=== PATIENT | male | born 1945 | race Caucasian/White ===

== ENCOUNTER 2017-01-16 19:10 | Emergency (ER) | payer OTHER ==
--- NOTE | 2017-01-16 19:13 | PDOC ---
History of Present Illness - General History Source: Patient Exam Limitations: No Limitations - History of Present Illness Initial Comments: 01/16/17 20:18 71 year old male, with significant past medical history of COPD, HTN, GERD, and diverticulitis who presents to the emergency room complaining of an intermittent streak of white light that appeared in his left eye 2 hours ago while watching TV. He notes that when this sensation began he simultaneously felt lightheaded. He denies blurry and double vision. Denies eye discharge, itchiness, and tearing. He denies recent change in vision and notes that he has been wearing glasses for many years. Denies headache. Denies recent head trauma and injury. Denies chest pain, SOB, cough. Denies fever, chills, nausea, vomiting. PAST MEDICAL HISTORY: COPD, HTN, GERD, diverticulitis PAST SURGICAL HISTORY: appendectomy, cholecystectomy FAMILY HISTORY: no pertinent history SOCIAL HISTORY: Pt lives with family. MEDICATIONS: reviewed ALLERGIES: Penicillin Review of systems General: No fevers or chills, no weakness, no weight loss HEENT: +streak of white light in the left visual field. No sore throat, No ear pain CardioVascular: No chest pain or shortness of breath Respiratory:No cough, or wheezing. Gastrointestinal: no nausea, vomiting, diarrhea or constipation, No rectal bleeding Genitourinary: No dysuria, hematuria, or frequency Musculoskeletal: No joint or muscle pain or swelling Neurologic: No headache, vertigo, dizziness or loss of consciousness Psychiatric: nor depression Skin: No rashes or easy bruising Endocrine: no increased thirst or abnormal weight change Allergic: no skin or latex allergy All other systems reviewed and normal Physical Exam GENERAL: The patient is awake, alert, and fully oriented, in no acute distress. HEAD: Normal with no signs of trauma. EYES: Pupils equal, round and reactive to light, extraocular movements intact, sclera anicteric, conjunctiva clear. FUNDUSCOPIC EXAM: Disc margins sharp. Funduscopic exam otherwise normal LEFT VISUAL ACUITY: 20/20 RIGHT VISUAL ACUITY: 20/25 EXTREMITIES: Normal range of motion, no edema. NEUROLOGICAL: Normal speech, normal gait. PSYCH: Normal mood, normal affect. SKIN: Warm, Dry, normal turgor, no rashes or lesions noted. <Teetee Seay - Last Filed: 01/16/17 20:22> - General History Source: Patient Exam Limitations: No Limitations - History of Present Illness Initial Comments: 01/16/17 20:20 This is a 71-year-old male who comes in complaining of intermittent flashers in his left eye patient denies any visual changes. Patient has a history of hypertension but denies any history of diabetes. Patient is otherwise healthy. Patient's visual acuity here in the emergency room was normal. Patient's eye exam including funduscopic exam was normal. Patient discharged home was told to call his behavioral health associate in the morning and follow-up for a full retinal exam funduscopic exam is <Katherine Shannon I - Last Filed: 01/16/17 20:28> - General Chief Complaint: Eye Problem Stated Complaint: LEFT EYE SEEING A STREAK OF WHITE LIGHT Time Seen by Provider: 01/16/17 19:12 Past History <Teetee Seay - Last Filed: 01/16/17 20:22> - Past Medical History Anemia: No Asthma: No Cancer: No Cardiac Disorders: No CVA: No COPD: Yes CHF: No Dementia: No Diabetes: No GI Disorders: Yes (GERD COLONIC POLYPS HIATAL HERNIA) Disorders: Yes (KIDNEY STONES) HTN: Yes Hypercholesterolemia: No Liver Disease: No Seizures: No Thyroid Disease: No - Surgical History Abdominal Surgery: Yes Appendectomy: Yes Cardiac Surgery: No Cholecystectomy: Yes Lung Surgery: No Neurologic Surgery: No Orthopedic Surgery: No - Immunization History Immunization Up to Date: No - Suicide/Smoking/Psychosocial Hx Smoking History: Current every day smoker Have you smoked in the past 12 months: Yes Number of Cigarettes Smoked Daily: 1 Cigars Per Day: 1 'Breaking Loose' booklet given: 04/14/14 Hx Alcohol Use: Yes (occasional) Drug/Substance Use Hx: No Substance Use Type: Alcohol Hx Substance Use Treatment: No <Katherine Shannon I - Last Filed: 01/16/17 20:28> - Past Medical History Allergies/Adverse Reactions: Allergies Allergy/AdvReac Type Severity Reaction Status Date / Time Penicillins Allergy Itching Verified 01/16/17 19:11 Home Medications: Ambulatory Orders Hydrochlorothiazide [Hctz -] 12.5 mg PO HS 08/10/14 Ramipril 10 mg PO HS 08/10/14 Ranitidine [Zantac -] 150 mg PO DAILY 01/16/17 *Physical Exam - Vital Signs Last Vital Signs Temp Pulse Resp BP Pulse Ox 97.6 F 76 18 159/94 97 01/16/17 19:10 01/16/17 19:10 01/16/17 19:10 01/16/17 19:10 01/16/17 19:10 <Teetee Seay - Last Filed: 01/16/17 20:22> *DC/Admit/Observation/Transfer <Teetee Seay - Last Filed: 01/16/17 20:22> - Discharge Dispostion Admit: No <Katherine Shannon I - Last Filed: 01/16/17 20:28> Diagnosis at time of Disposition: Vitreous floaters of left eye - Discharge Dispostion Disposition: HOME Condition at time of disposition: Stable - Patient Instructions Additional Instructions: Call your eye doctor in the morning and get an appointment for a retinal exam. Return to the emergency department immediately with ANY new, persistent or worsening symptoms. Continue any medications as previously prescribed by your physician. You should follow up with your primary doctor as soon as possible regarding today's emergency department visit. . Please make sure your doctor reviews the results of your emergency evaluation. Thank you for coming to the Emergency Department today for your care. It was a pleasure to see you today. Please note that your evaluation is INCOMPLETE until you follow-up with your doctor.
[2017-01-16 19:21] VITALS: BP 159/94; PULSE 76; TEMP 97.6; BMI 35.4
== END 2017-01-16 20:31 | disposition home or self-care (01) ==
LOC: FER 19:10
DX: H43.392 Other vitreous opacities, left eye (principal); I10 Essential (primary) hypertension; K21.9 Gastro-esophageal reflux disease without esophagitis; J44.9 Chronic obstructive pulmonary disease, unspecified
CPT/HCPCS: 99282-25

== ENCOUNTER 2017-09-12 21:48 | Emergency (ER) | payer OTHER ==
[2017-09-12 22:06] VITALS: BP 150/80; PULSE 71; TEMP 98; BMI 35.4
--- NOTE | 2017-09-12 23:23 | PDOC ---
History of Present Illness - General Chief Complaint: Pain, Acute Stated Complaint: ABDOMINAL PAIN History Source: Patient - History of Present Illness Travel History: No Initial Comments: 09/13/17 06:49 abd pain x months, worsening upper abd radiating to lower abd no nausea occsaional diarrhea nl BM this am Timing/Duration: reports: getting worse Quality: reports: moderate Abdominal Pain Onset Location: reports: epigastric Pain Radiation: reports: RLQ, LLQ Activities at Onset: reports: none Treatment Prior to Arrive: improves with: antacids Aggravating Factors: improves with: None Alleviating Factors: improves with: None Past History - Past Medical History Allergies/Adverse Reactions: Allergies Allergy/AdvReac Type Severity Reaction Status Date / Time Penicillins Allergy Itching Verified 01/16/17 19:11 Home Medications: Ambulatory Orders Hydrochlorothiazide [Hctz -] 12.5 mg PO HS 08/10/14 Ramipril 10 mg PO HS 08/10/14 Albuterol Sulfate [Proair Hfa] 8.5 gm IH DAILY 09/12/17 Dicyclomine HCl 10 mg PO PRN PRN 09/12/17 Pantoprazole Sodium 40 mg PO DAILY 09/12/17 Ciprofloxacin [Cipro (Restricted To Id)] 500 mg PO DAILY #14 tablet 09/13/17 metroNIDAZOLE [Flagyl -] 500 mg PO TID #21 tablet 09/13/17 Anemia: No Asthma: No Cancer: No Cardiac Disorders: No CVA: No COPD: Yes CHF: No Dementia: No Diabetes: No GI Disorders: Yes (GERD COLONIC POLYPS HIATAL HERNIA) Disorders: Yes (KIDNEY STONES) HTN: Yes Hypercholesterolemia: No Liver Disease: No Seizures: No Thyroid Disease: No - Surgical History Abdominal Surgery: Yes Appendectomy: Yes Cardiac Surgery: No Cholecystectomy: Yes Lung Surgery: No Neurologic Surgery: No Orthopedic Surgery: No - Immunization History Immunization Up to Date: No - Suicide/Smoking/Psychosocial Hx Smoking History: Former smoker Have you smoked in the past 12 months: Yes Number of Cigarettes Smoked Daily: 1 Cigars Per Day: 1 Information on smoking cessation initiated: No 'Breaking Loose' booklet given: 04/14/14 Hx Alcohol Use: Yes (occasional) Drug/Substance Use Hx: No Substance Use Type: Alcohol Hx Substance Use Treatment: No Abd/GI Specific PMHX - Complaint Specific PMHX GERD: Yes Review of Systems - Review of Systems All Other Systems: Reviewed and Negative *Physical Exam - Vital Signs Last Vital Signs Temp Pulse Resp BP Pulse Ox 98 F 71 18 150/80 95 09/12/17 22:03 09/12/17 22:03 09/12/17 22:03 09/12/17 22:03 09/12/17 22:03 - Physical Exam General Appearance: Yes: Nourished, Appropriately Dressed HEENT: positive: Normal Voice Neck: negative: Lymphadenopathy (R), Lymphadenopathy (L) Respiratory/Chest: positive: Lungs Clear Cardiovascular: positive: Regular Rhythm Gastrointestinal/Abdominal: positive: Distended. negative: Tender Lymphatic: negative: Adenopathy Musculoskeletal: positive: Normal Inspection Extremity: positive: Normal Capillary Refill Integumentary: positive: Normal Color Neurologic: positive: Alert ED Treatment Course - LABORATORY CBC & Chemistry Diagram: 09/12/17 23:25 09/12/17 23:25 - RADIOLOGY Radiology Studies Ordered: Category Date Time Status ABDOMEN & PELVIS CT WITH CONTR [CT] Stat CT Scan 09/12/17 23:20 Ordered Medical Decision Making - Medical Decision Making 09/13/17 06:51 Observed in ED x 9 hours LAbs, CT reslts reviewed Serial abd exams Still no abd tenderness at the time of ED discharge Tolerating PO Given CT findings and elevated WBC, will initiate abx. HAs GI fu *DC/Admit/Observation/Transfer Diagnosis at time of Disposition: Colitis - Discharge Dispostion Disposition: HOME Condition at time of disposition: Stable - Prescriptions Prescriptions: Ciprofloxacin [Cipro (Restricted To Id)] 500 mg PO DAILY #14 tablet metroNIDAZOLE [Flagyl -] 500 mg PO TID #21 tablet - Referrals Referrals: Riki Gibson MD [Primary Care Provider] - Call tomorrow - Patient Instructions Printed Discharge Instructions: DI for Colitis - Post Discharge Activity
[2017-09-12 23:34] LABS: BASO % 2.7 % (0-2.0); EOS % 1.4 % (0-4.5); HEMATOCRIT 48.2 % (35.4-49); HEMOGLOBIN 16.7 GM/dl (11.7-16.9); LYMPH % 14.9 % (8-40); MCH 31.3 pg (25.7-33.7); MCHC 34.6 g/dl (32.0-35.9); MEAN CELL VOLUME 90.5 fl (80-96); MEAN PLT VOLUME 8.7 fl (7.5-11.1); MONO % 8.2 % (3.8-10.2); NEUT % 72.8 % (42.8-82.8); PLATELET COUNT 215 K/MM3 (134-434); RBC 5.33 M/mm3 (4.00-5.60); RDW 12.9 % (11.9-15.9); WHITE BLOOD COUNT 15.1 K/mm3 (4.0-10.8)
[2017-09-13 00:58] LABS: LIPASE 254 U/L (73-393)
[2017-09-13 01:11] LABS: ALBUMIN 3.5 g/dl (3.4-5.0); ANION GAP 11 (8-16); BILIRUBIN,TOTAL 0.5 mg/dL (0.2-1.0); BLOOD UREA NITROGEN 22 mg/dL (7-18); CALCIUM 8.8 mg/dL (8.5-10.1); CHLORIDE 110 mmol/L (98-107); CO2 20 mmol/L (21-32); CREATININE 1.3 mg/dL (0.7-1.3); GLUCOSE,RANDOM 110 mg/dL (74-106); POTASSIUM 4.3 mmol/L (3.5-5.1); SGOT/AST 20 U/L (15-37); SGPT/ALT 31 U/L (12-78); SODIUM 141 mmol/L (136-145); TOT PROT 7.1 g/dl (6.4-8.2)
[2017-09-13 01:12] LABS: ALK PHOS 96 U/L (45-117)
== END 2017-09-13 03:07 | disposition home or self-care (01) ==
LOC: FER 21:48
DX: K52.9 Noninfective gastroenteritis and colitis, unspecified (principal); J44.9 Chronic obstructive pulmonary disease, unspecified; I10 Essential (primary) hypertension; Z87.891 Personal history of nicotine dependence
CPT/HCPCS: 36415; 74177-TC; 80053; 83690; 85025; 99282-25

== ENCOUNTER 2018-07-26 10:00 | Emergency (ER) | payer OTHER, MEDICARE ==
--- NOTE | 2018-07-26 10:07 | PDOC ---
History of Present Illness - General Chief Complaint: Back Pain Stated Complaint: left lower back pain Time Seen by Provider: 07/26/18 10:02 History Source: Patient Exam Limitations: No Limitations - History of Present Illness Initial Comments: 07/26/18 10:08 71 year old male, with significant past medical history of COPD, HTN, GERD, kidney stones and diverticulitis presents with a complaint of back pain for the past ~4 days. The pain is intermittent, in the L lower back although it occasionally radiates to the R lower back and the L abd, is sharp/aching, and seems worse whenhe is lying down. Pt denies any fever/chills, n/v, cp, sob. No dysuria/hematuria/foul smellnig urine, although pt states he is urinating more frequently. Pt notes he was on clindamycin last week for a toe infection ( infection improved), but started having a few episodes of loose stool ('like dog food') without associated abd pain. no blood/melena seen. no other sick contacts or recent travel. pmd: Paige Past History - Past Medical History Allergies/Adverse Reactions: Allergies Allergy/AdvReac Type Severity Reaction Status Date / Time Penicillins Allergy Itching Verified 07/26/18 10:01 Home Medications: Ambulatory Orders Acetaminophen [Tylenol -] 500 mg PO PRN PRN 07/26/18 Amlodipine Besylate 10 mg PO DAILY 07/26/18 Aspirin Coated [Ecotrin -] 325 mg PO DAILY 07/26/18 Clopidogrel Bisulfate [Clopidogrel] 75 mg PO DAILY 07/26/18 Hydrochlorothiazide [Hctz -] 12.5 mg PO DAILY 07/26/18 Levofloxacin [Levaquin] 750 mg PO DAILY #6 tablet 07/26/18 Losartan Potassium 50 mg PO DAILY 07/26/18 Rosuvastatin [Crestor -] 10 mg PO DAILY 07/26/18 metroNIDAZOLE [Flagyl -] 500 mg PO TID #20 tablet 07/26/18 Anemia: No Asthma: No Cancer: No Cardiac Disorders: No CVA: No COPD: Yes CHF: No Dementia: No Diabetes: No GI Disorders: Yes (GERD COLONIC POLYPS HIATAL HERNIA) Disorders: Yes (KIDNEY STONES) HTN: Yes Hypercholesterolemia: No Liver Disease: No Seizures: No Thyroid Disease: No - Surgical History Abdominal Surgery: Yes Appendectomy: Yes Cardiac Surgery: No Cholecystectomy: Yes Lung Surgery: No Neurologic Surgery: No Orthopedic Surgery: No - Immunization History Immunization Up to Date: No - Suicide/Smoking/Psychosocial Hx Smoking History: Former smoker Have you smoked in the past 12 months: Yes Number of Cigarettes Smoked Daily: 1 Cigars Per Day: 1 'Breaking Loose' booklet given: 04/14/14 Hx Alcohol Use: Yes (occasional) Drug/Substance Use Hx: No Substance Use Type: Alcohol Hx Substance Use Treatment: No Review of Systems - Review of Systems Able to Perform ROS?: Yes Comments:: 07/26/18 10:56 Constitutional - no reported Fever, Chills, HEENT: no reported vision changes, sore throat Respiratory: no reported cough, sob, hemoptysis Cardiac: no reported chest pain, palpitations, light headedness, leg swelling Abd/GI: no reported abd pain, nausea, vomiting, blood per rectum, melena, diarrhea : no reported dysuria, frequency, discharge Musculskelatal - +back pain, no reported joint swelling skin - no reported bruising, erythema, rash neurological: no reported headache, numbness, focal weakness, tingling, ataxia, hematologic: no reported easy bruising, easy bleeding GENERAL: The patient is awake, alert, and fully oriented, Nontoxic - in no acute distress. HEAD: Normocephalic, atraumatic. EYES: extraocular movements intact, sclera anicteric, conjunctiva clear. ENT: Normal voice, Moist mucous membranes. NECK: Normal range of motion, supple LUNGS: Breath sounds equal, clear to auscultation bilaterally. No wheezes, no rhonchi, no rales. HEART: Regular rate and rhythm, normal S1 and S2 without murmur, rub or gallop. ABDOMEN: Soft, mild llq/epigastric ttp, No guarding, no rebound. No CVA tenderness EXTREMITIES: Normal range of motion, trace edema. neg homans sign. NEUROLOGICAL: No facial assymetry, Normal speech, PSYCH: Normal mood, normal affect. SKIN: Warm, Dry, normal turgor, ED Treatment Course - LABORATORY CBC & Chemistry Diagram: 07/26/18 10:52 07/26/18 10:52 Medical Decision Making - Medical Decision Making 07/26/18 10:58 ddx - msk pain vs diverticulitis consider possible colitis from clindamycin ( although unlikely based on description of stool and lack ofa bd pain) will ck basic labs, ua 07/26/18 14:10 labs reviewed - noted for leukocytosis to 16 ct noted for signs of colitis will treat with levaquin, flagyl will dc with pmd fu return precautions were discussed I discussed the physical exam findings, ancillary test results and final diagnoses with the patient. I answered all of the patient's questions. The patient was satisfied with the care received and felt comfortable with the discharge plan and treatment plan. The patient will call their primary care physician within 24 hours to arrange follow-up and will return to the Emergency Department with any new, persistent or worsening symptoms. *DC/Admit/Observation/Transfer Diagnosis at time of Disposition: Colitis - Discharge Dispostion Disposition: HOME Condition at time of disposition: Improved Decision to Admit order: No - Prescriptions Prescriptions: Levofloxacin [Levaquin] 750 mg PO DAILY #6 tablet metroNIDAZOLE [Flagyl -] 500 mg PO TID #20 tablet - Referrals Referrals: Riki Gibson MD [Staff Physician] - - Patient Instructions Printed Discharge Instructions: DI for Colitis Additional Instructions: Return to the emergency department immediately with ANY new, persistent or worsening symptoms including worsening abdominal pain, fevers, inability to tolerate oral intake, chest pain, shortness of breath or any other concerns. Stay well hydrated. You MUST call and follow up with your doctor tomorrow. Your emergency department visit is not complete without a followup with your doctor for reevaluation. Please make sure your doctor reviews the results of your emergency evaluation. Print Language: SLOVENIAN - Post Discharge Activity
[2018-07-26 10:10] VITALS: BP 170/84; PULSE 78; TEMP 97.6; BMI 34.2
[2018-07-26 11:10] LABS: EOS % 1.1 % (0-4.5); RDW 12.9 % (11.9-15.9)
[2018-07-26 11:18] LABS: ALBUMIN 3.7 g/dl (3.4-5.0); ALK PHOS 87 U/L (45-117); ANION GAP 15 MMOL/L (8-16); BASO % 0.2 % (0-2.0); BILIRUBIN,TOTAL 0.7 mg/dl (0.2-1); BLOOD UREA NITROGEN 28 mg/dl (7-18); CALCIUM 9.1 mg/dl (8.5-10); CHLORIDE 103 mmol/L (98-107); CO2 20 mmol/L (21-32); CREATININE 1.2 mg/dl (0.55-1.3); GLUCOSE,RANDOM 120 mg/dl (74-106); HEMATOCRIT 39.8 % (35.4-49); HEMOGLOBIN 13.6 GM/dl (11.7-16.9); LYMPH % 11.2 % (8-40); MCH 30.9 pg (25.7-33.7); MCHC 34.3 g/dl (32.0-35.9); MEAN CELL VOLUME 90.1 fl (80-96); MEAN PLT VOLUME 8.2 fl (7.5-11.1); MONO % 7.6 % (3.8-10.2); NEUT % 79.9 % (42.8-82.8); PLATELET COUNT 298 K/MM3 (134-434); POTASSIUM 3.3 mmol/L (3.5-5.1); RBC 4.41 M/mm3 (4.00-5.60); SGOT/AST 17 U/L (15-37); SGPT/ALT 19 U/L (13-61); SODIUM 138 mmol/L (136-145)
[2018-07-26] MEDS ORDERED: SODIUM CHLORIDE 500 ML IV STA (12:25)
[2018-07-26] MEDS ORDERED: metroNIDAZOLE 250 MG TABLET PO ONE (14:07)
[2018-07-26] MEDS ORDERED: metroNIDAZOLE 250 MG TABLET ONE (14:11)
== END 2018-07-26 14:37 | disposition home or self-care (01) ==
LOC: FER 10:00
PROC: 3E0337Z Introduction of Electrolytic and Water Balance Substance into Peripheral Vein, Percutaneous Approach (ICD-10-PCS; principal; 2018-07-26)
DX: K52.9 Noninfective gastroenteritis and colitis, unspecified (principal); I10 Essential (primary) hypertension; K21.9 Gastro-esophageal reflux disease without esophagitis; J44.9 Chronic obstructive pulmonary disease, unspecified; Z87.442 Personal history of urinary calculi; Z88.0 Allergy status to penicillin; Z79.82 Long term (current) use of aspirin
CPT/HCPCS: 36415; 74177-TC; 80053; 81003; 85025; 87086; 87324; 87449; 99284-25

== ENCOUNTER 2018-12-13 17:43 | Emergency (ER) | payer MEDICARE, OTHER ==
[2018-12-13 18:11] VITALS: BP 182/91; PULSE 84; TEMP 98.5; BMI 35.4
[2018-12-13] MEDS ORDERED: ACETAMINOPHEN 1000 MG/100 ML VIAL (NON FORMULARY) IVPB ONE (18:38)
[2018-12-13] MEDS ORDERED: ACETAMINOPHEN INJECTION 100 ML IVPB ONE (18:46)
[2018-12-13 19:14] LABS: BASO % 0.1 % (0-2.0); EOS % 1.7 % (0-4.5); HEMATOCRIT 43.7 % (35.4-49); HEMOGLOBIN 14.6 GM/dl (11.7-16.9); LYMPH % 12.1 % (8-40); MCH 30.5 pg (25.7-33.7); MCHC 33.5 g/dl (32.0-35.9); MEAN CELL VOLUME 91.2 fl (80-96); MEAN PLT VOLUME 8.6 fl (7.5-11.1); NEUT % 79.1 % (42.8-82.8); PLATELET COUNT 267 K/MM3 (134-434); RBC 4.79 M/mm3 (4.00-5.60); RDW 13.1 % (11.9-15.9); WHITE BLOOD COUNT 16.4 K/mm3 (4.0-10.8)
[2018-12-13 19:26] LABS: ALBUMIN 4.2 g/dl (3.4-5.0); BILIRUBIN,TOTAL 1.1 mg/dl (0.2-1); CALCIUM 9.5 mg/dl (8.5-10); CREATININE 1.4 mg/dl (0.55-1.3); MAGNESIUM 1.9 mg/dL (1.8-2.4); TOT PROT 7.5 g/dl (6.4-8.2)
[2018-12-13 19:36] LABS: ACTIVATED PTT 32.2 SECONDS (25.2-36.5)
[2018-12-13 19:36] LABS: EPITHELIAL CELLS RARE /hpf
[2018-12-13 19:37] LABS: URINE SPERM 1+
--- NOTE | 2018-12-13 19:39 | PDOC ---
*Physical Exam - Vital Signs Last Vital Signs Temp Pulse Resp BP Pulse Ox 98.5 F 84 18 182/91 H 97 12/13/18 17:44 12/13/18 17:44 12/13/18 17:44 12/13/18 17:44 12/13/18 17:44 ED Treatment Course - LABORATORY CBC & Chemistry Diagram: 12/13/18 18:50 12/13/18 18:50 - ADDITIONAL ORDERS Additional order review: Laboratory Results 12/13/18 12/13/18 12/13/18 19:11 18:50 18:50 PTT (Actin FS) Sodium 137 Potassium 4.0 Chloride 102 Carbon Dioxide 26 Anion Gap 9 BUN 29.0 H Creatinine 1.4 H Est GFR (CKD-EPI)AfAm 57.36 Est GFR (CKD-EPI)NonAf 49.49 Random Glucose 145 H Calcium 9.5 Magnesium Cancelled 1.9 Total Bilirubin 1.1 H AST 20 ALT 27 Alkaline Phosphatase 83 Total Protein 7.5 Albumin 4.2 Urine Color Yellow Urine Appearance Clear Urine pH 5.0 Urine Protein 1+ H Urine Glucose (UA) Negative Urine Ketones Negative Urine Blood 3+ H Urine Nitrite Negative Urine Bilirubin Negative Urine Urobilinogen 0.2 Ur Leukocyte Esterase Negative 12/13/18 18:50 PTT (Actin FS) Cancelled Sodium Potassium Chloride Carbon Dioxide Anion Gap BUN Creatinine Est GFR (CKD-EPI)AfAm Est GFR (CKD-EPI)NonAf Random Glucose Calcium Magnesium Total Bilirubin AST ALT Alkaline Phosphatase Total Protein Albumin Urine Color Urine Appearance Urine pH Urine Protein Urine Glucose (UA) Urine Ketones Urine Blood Urine Nitrite Urine Bilirubin Urine Urobilinogen Ur Leukocyte Esterase 12/13/18 18:50 RBC 4.79 MCV 91.2 MCHC 33.5 RDW 13.1 MPV 8.6 Neutrophils % 79.1 Lymphocytes % 12.1 Monocytes % 7.0 Eosinophils % 1.7 Basophils % 0.1 - Medications Given in the ED: ED Medications Discontinued Medications Generic Name Dose Route Start Last Admin Trade Name Freq PRN Reason Stop Dose Admin Acetaminophen 1,000 mg 12/13/18 18:38 12/13/18 18:51 Ofirmev Injection - IVPB 12/13/18 18:39 1,000 mg ONCE ONE Administration Progress Note - Progress Note Progress Note: Care of this patient received from Dr. Alvarado. Abdominal/pelvic CT performed ( no IV contrast secondary to creatinine 1.4): No evidence of acute abnormality. Extensive colonic diverticulosis and stool retention without evidence of diverticulitis. Normal terminal ileum seen. No evidence of acute vascular abnormality. There were degenerative changes noted in the lower lumbar spine. No evidence of ureteral stone or hydronephrosis/hydroureter. Portable chest x-ray was performed because of patient's productive cough for 1 week: Preliminary interpretation by sushila infiltrates, effusions or masses. Chronic changes seen at left base. Previous chest x-ray from 03/10 noted to have ER bilateral chronic changes at the bases but was otherwise largely unchanged. Results discussed with the patient: Etiology of patient's current pain is unclear. Urinalysis notable for presence of red blood cells without overt evidence of UTI (no LE, nitrite on dip or bacteria seen on microscopic exam). Imaging shows no evidence of ureteral stone or dilation of ureter/renal pelvis. Urine sent for culture and sensitivity. the patient states he has a long history of lower back pain and today's flank/ right lower quadrant pain began when he twisted his torso after taking a shower this morning. It is possible that pain is secondary to musculoskeletal issues versus spinal stenosis/lumbar disc disease. He states that he has never seen a spinal surgeon or had workup of his lower back pain. He will be given referral information for . He should follow-up with him if he has persistent lower back/flank pain, especially if it is worse with movement. Patient asked about pain relief. He was advised to alternate anti-inflammatory medication such as Motrin with acetaminophen. He asked for "strong" medication for episodes of more severe pain. He was given a small (#10) prescription for Percocet 5/325 to be used up to 3 times a day for severe pain. If he has persistent severe pain not responsive to above pain medication, he should return to the ER immediately Because of the patient's long smoking history and presence of productive cough for a week, he will be treated for bronchitis. Patient states that he is receive Levaquin 500 mg daily for bronchitis in the past with good result. First dose of Levaquin 500 mg given to the patient. *DC/Admit/Observation/Transfer Diagnosis at time of Disposition: Bronchitis, Right flank pain - Discharge Dispostion Disposition: HOME Condition at time of disposition: Stable - Prescriptions Prescriptions: levoFLOXacin [Levaquin -] 500 mg PO DAILY #7 tablet Oxycodone HCl/Acetaminophen [Percocet 5-325 mg Tablet] 1 tab PO Q6H PRN #10 tablet MDD 3 tabs PRN Reason: Severe Pain - Referrals Referrals: Kojo Whyte MD [Staff Physician] - 1 week - Patient Instructions Printed Discharge Instructions: DI for Flank Pain Additional Instructions: Drink plenty of water; Levaquin 500 mg 3 times a day Alternate Aleve (take with food) with Tylenol as needed for moderate pain Percocet 5/325 up to 3 times a day as needed for severe pain Follow-up with your general doctor within the next 5 days Return to ER immediately if you have worsening pain/vomiting/fever Follow-up with if you have persistent lower back pain - Post Discharge Activity
[2018-12-13 19:40] LABS: INR 1.11 (0.82-1.09); PROTHROMBIN TIME (PATIENT) 12.4 SEC (10.2-13.0)
[2018-12-13] MEDS ORDERED: KETOROLAC TROMETHAMINE 30 MG/1 ML VIAL IVPUSH ONE (20:20)
[2018-12-13] MEDS ORDERED: KETOROLAC TROMETHAMINE 30 MG/1 ML VIAL ONE (20:22)
--- NOTE | 2018-12-16 15:24 | PDOC ---
Documentation entered by Gwendolyn Shen SCRIBE, acting as scribe for Rekha Alvarado MD. Rekha Alvarado MD: This documentation has been prepared by the Ac harper Aiswarya, SCRIBE, under my direction and personally reviewed by me in its entirety. I confirm that the documentation accurately reflects all work, treatment, procedures, and medical decision making performed by me. History of Present Illness <Polly Kwong - Last Filed: 12/13/18 22:32> - General History Source: Patient Exam Limitations: No Limitations - History of Present Illness Initial Comments: 12/13/18 18:51 The patient is a 72 year old male, with a significant PMH of CVA (05/2018), COPD , GERD colonic polyps, hiatal hernia, diverticulitis, kidney stones and HTN, who presents to the emergency department with abdominal pain that began a week ago. The patient states intermittent and burning pain is located to the RLQ that radiates to the right flank, no relief with Tylenol or heating pad. The patient states pain is exacerbated when standing up and coughing. Last bowel movement was this afternoon. Patient also mentions mild pain to the groin. The patient denies chest pain, shortness of breath, headache and dizziness. Denies fever, chills, nausea, vomit, diarrhea and constipation. Denies dysuria, frequency, urgency and hematuria. Allergies: Penicillin Past surgical history: abdominal, appectomy, right carotid artery stent, cholecystectomy Social history: Former smoker (quit 05/2018) PCP: None reported <Rekha Alvarado - Last Filed: 12/17/18 16:46> - General Chief Complaint: Pain Stated Complaint: RLQ PAIN AND COUGH Time Seen by Provider: 12/13/18 18:12 Past History <Polly Kwong - Last Filed: 12/13/18 22:32> - Past Medical History Anemia: No Asthma: No Cancer: No Cardiac Disorders: No CVA: Yes (05/2018) COPD: Yes CHF: No Dementia: No Diabetes: No GI Disorders: Yes (GERD COLONIC POLYPS HIATAL HERNIA,DIVERTICULITIS) Disorders: Yes (KIDNEY STONES) HTN: Yes Hypercholesterolemia: No Liver Disease: No Seizures: No Thyroid Disease: No - Surgical History Abdominal Surgery: Yes Appendectomy: Yes Cardiac Surgery: Yes (rigth carotid artery stent) Cholecystectomy: Yes Lung Surgery: No Neurologic Surgery: No Orthopedic Surgery: No - Immunization History Immunization Up to Date: No - Psycho Social/Smoking Cessation Hx Smoking History: Former smoker Have you smoked in the past 12 months: Yes Number of Cigarettes Smoked Daily: 1 If you are a former smoker, when did you quit?: 05/2018 Cigars Per Day: 1 Information on smoking cessation initiated: No 'Breaking Loose' booklet given: 04/14/14 Hx Alcohol Use: No (occasional) Drug/Substance Use Hx: No Substance Use Type: Alcohol Hx Substance Use Treatment: No <Rekha Alvarado - Last Filed: 12/17/18 16:46> - Past Medical History Allergies/Adverse Reactions: Allergies Allergy/AdvReac Type Severity Reaction Status Date / Time Penicillins Allergy Itching Verified 12/13/18 17:45 Home Medications: Ambulatory Orders Amlodipine Besylate 10 mg PO DAILY 07/26/18 Aspirin Coated [Ecotrin -] 325 mg PO HS 07/26/18 Clopidogrel Bisulfate [Clopidogrel] 75 mg PO HS 07/26/18 Hydrochlorothiazide [Hctz -] 12.5 mg PO HS 07/26/18 Rosuvastatin [Crestor -] 10 mg PO HS 07/26/18 Oxycodone HCl/Acetaminophen [Percocet 5-325 mg Tablet] 1 tab PO Q6H PRN #10 tablet MDD 3 tabs 12/13/18 levoFLOXacin [Levaquin -] 500 mg PO DAILY #7 tablet 12/13/18 Review of Systems - Review of Systems Able to Perform ROS?: Yes Comments:: 12/13/18 18:52 GENERAL/CONSTITUTIONAL: No fever or chills. No weakness. HEAD, EYES, EARS, NOSE AND THROAT: No change in vision. No ear pain or discharge. No sore throat. GASTROINTESTINAL: +right lower quadrant pain GENITOURINARY: No dysuria, frequency, or change in urination. CARDIOVASCULAR: No chest pain or shortness of breath. RESPIRATORY: No cough, wheezing, or hemoptysis. MUSCULOSKELETAL: No joint or muscle swelling or pain. No neck or back pain. SKIN: No rash NEUROLOGIC: No headache, vertigo, loss of consciousness, or change in strength/ sensation. ENDOCRINE: No increased thirst. No abnormal weight change. HEMATOLOGIC/LYMPHATIC: No anemia, easy bleeding, or history of blood clots. ALLERGIC/IMMUNOLOGIC: No hives or skin allergy <BrianAmadou gomezrobert - Last Filed: 12/17/18 16:46> *Physical Exam - Vital Signs Last Vital Signs Temp Pulse Resp BP Pulse Ox 98.5 F 84 18 182/91 H 97 12/13/18 17:44 12/13/18 17:44 12/13/18 17:44 12/13/18 17:44 12/13/18 17:44 <Polly Kwong - Last Filed: 12/13/18 22:32> - Vital Signs Last Vital Signs Temp Pulse Resp BP Pulse Ox 98.5 F 84 18 182/91 H 97 12/13/18 17:44 12/13/18 17:44 12/13/18 17:44 12/13/18 17:44 12/13/18 17:44 - Physical Exam Comments: 12/13/18 18:52 GENERAL: Awake, alert, and fully oriented, in no acute distress EYES: PERRLA, EOMI, sclera anicteric, conjunctiva clear LUNGS: Breath sounds equal, clear to auscultation bilaterally. No wheezes, and no crackles HEART: Regular rate and rhythm, normal S1 and S2, no murmurs, rubs or gallops ABDOMEN:+RLQ tenderness on palpation.No guarding, no rebound. No masses EXTREMITIES: Normal range of motion, no edema. No clubbing or cyanosis. No cords , erythema, or tenderness. WWP distally BACK: No midline spinal tenderness in cervical/thoracic/lumbar region NEUROLOGICAL: Normal speech, cranial nerves intact, equal strngth and sensation b/l SKIN: Warm, Dry, normal turgor, no rashes or lesions noted. <BrianshantellAmadourobert - Last Filed: 12/17/18 16:46> ED Treatment Course - LABORATORY CBC & Chemistry Diagram: 12/13/18 18:50 12/13/18 18:50 - ADDITIONAL ORDERS Additional order review: Laboratory Results 12/13/18 12/13/18 12/13/18 19:11 18:50 18:50 PT with INR 12.4 INR 1.11 PTT (Actin FS) 32.2 Sodium Potassium Chloride Carbon Dioxide Anion Gap BUN Creatinine Est GFR (CKD-EPI)AfAm Est GFR (CKD-EPI)NonAf Random Glucose Lactic Acid Calcium Magnesium Cancelled Total Bilirubin AST ALT Alkaline Phosphatase Total Protein Albumin Lipase 131 Urine Color Yellow Urine Appearance Clear Urine pH 5.0 Urine Protein 1+ H Urine Glucose (UA) Negative Urine Ketones Negative Urine Blood 3+ H Urine Nitrite Negative Urine Bilirubin Negative Urine Urobilinogen 0.2 Ur Leukocyte Esterase Negative Urine RBC 20-40 Urine WBC 2-5 Ur Transition Epith Cell Rare 12/13/18 12/13/18 12/13/18 18:50 18:50 18:50 PT with INR INR PTT (Actin FS) Cancelled Sodium 137 Potassium 4.0 Chloride 102 Carbon Dioxide 26 Anion Gap 9 BUN 29.0 H Creatinine 1.4 H Est GFR (CKD-EPI)AfAm 57.36 Est GFR (CKD-EPI)NonAf 49.49 Random Glucose 145 H Lactic Acid 1.9 Calcium 9.5 Magnesium 1.9 Total Bilirubin 1.1 H AST 20 ALT 27 Alkaline Phosphatase 83 Total Protein 7.5 Albumin 4.2 Lipase Urine Color Urine Appearance Urine pH Urine Protein Urine Glucose (UA) Urine Ketones Urine Blood Urine Nitrite Urine Bilirubin Urine Urobilinogen Ur Leukocyte Esterase Urine RBC Urine WBC Ur Transition Epith Cell 12/13/18 18:50 RBC 4.79 MCV 91.2 MCHC 33.5 RDW 13.1 MPV 8.6 Neutrophils % 79.1 Lymphocytes % 12.1 Monocytes % 7.0 Eosinophils % 1.7 Basophils % 0.1 - RADIOLOGY Radiology Studies Ordered: Category Date Time Status ABDOMEN & PELVIS CT W/O CONTR [CT] Stat CT Scan 12/13/18 19:37 Taken CHEST X-RAY PORTABLE* [RAD] Stat Radiology 12/13/18 20:19 Taken - Medications Given in the ED: ED Medications Discontinued Medications Generic Name Dose Route Start Last Admin Trade Name Freq PRN Reason Stop Dose Admin Acetaminophen 1,000 mg 12/13/18 18:38 12/13/18 18:51 Ofirmev Injection - IVPB 12/13/18 18:39 1,000 mg ONCE ONE Administration Ketorolac Tromethamine 30 mg 12/13/18 20:20 12/13/18 20:37 Toradol Injection - IVPUSH 12/13/18 20:21 30 mg ONCE ONE Administration <Polly Kwong - Last Filed: 12/13/18 22:32> - LABORATORY CBC & Chemistry Diagram: 12/13/18 18:50 12/13/18 18:50 - ADDITIONAL ORDERS Additional order review: 12/13/18 18:50 Urine Culture - Final Urine - Urine Clean Catch NO GROWTH OBTAINED 12/13/18 18:50 RBC 4.79 MCV 91.2 MCHC 33.5 RDW 13.1 MPV 8.6 Neutrophils % 79.1 Lymphocytes % 12.1 Monocytes % 7.0 Eosinophils % 1.7 Basophils % 0.1 - Medications Given in the ED: ED Medications Discontinued Medications Generic Name Dose Route Start Last Admin Trade Name Brittney PRN Reason Stop Dose Admin Acetaminophen 1,000 mg 12/13/18 18:38 12/13/18 18:51 Ofirmev Injection - IVPB 12/13/18 18:39 1,000 mg ONCE ONE Administration Ketorolac Tromethamine 30 mg 12/13/18 20:20 12/13/18 20:37 Toradol Injection - IVPUSH 12/13/18 20:21 30 mg ONCE ONE Administration Levofloxacin 500 mg 12/13/18 22:26 12/13/18 22:38 Levaquin - PO 12/13/18 22:27 500 mg ONCE ONE Administration Oxycodone/Acetaminophen 1 combo 12/13/18 22:27 12/13/18 22:39 Percocet 5/325 - PO 12/13/18 22:28 1 combo ONCE ONE Administration <Rekha Alvarado - Last Filed: 12/17/18 16:46> Medical Decision Making - Medical Decision Making 12/13/18 19:00 72yo M presents to the ED with RLQ and R flank pain for 1 week Exam with RLQ ttp DDx includes hernia vs appendicitis vs renal colic vs colitis vs UTI vs MSK pain Plan for labs, UA, CT, symptom control, reassess Case signed out to Dr. Kwong for further mgmt/dispo <Rekha Alvarado - Last Filed: 12/17/18 16:46> *DC/Admit/Observation/Transfer <Polly Kwong - Last Filed: 12/13/18 22:32> - Attestations Physician Attestion: 12/17/18 16:44 I, Dr. Rekha Alvarado MD, attest that this document has been prepared under my direction and personally reviewed by me in its entirety. I further attest, that it accurately reflects all work, treatment, procedures and medical decision -making performed by me. <Rekha Alvarado - Last Filed: 12/17/18 16:46> Diagnosis at time of Disposition: Bronchitis, Right flank pain - Discharge Dispostion Disposition: HOME Condition at time of disposition: Stable - Prescriptions Prescriptions: levoFLOXacin [Levaquin -] 500 mg PO DAILY #7 tablet Oxycodone HCl/Acetaminophen [Percocet 5-325 mg Tablet] 1 tab PO Q6H PRN #10 tablet MDD 3 tabs PRN Reason: Severe Pain - Referrals Referrals: Kojo Whyte MD [Staff Physician] - 1 week - Patient Instructions Printed Discharge Instructions: DI for Flank Pain Additional Instructions: Drink plenty of water; Levaquin 500 mg 3 times a day Alternate Aleve (take with food) with Tylenol as needed for moderate pain Percocet 5/325 up to 3 times a day as needed for severe pain Follow-up with your general doctor within the next 5 days Return to ER immediately if you have worsening pain/vomiting/fever Follow-up with if you have persistent lower back pain Discharge <Polly Kwong - Last Filed: 12/13/18 22:32> - Discharge Information Problems reviewed: Yes - Admission No <Rekha Alvarado - Last Filed: 12/17/18 16:46> - Discharge Information Clinical Impression/Diagnosis: Bronchitis, Right flank pain Condition: Stable Disposition: HOME - Additional Discharge Information Prescriptions: levoFLOXacin [Levaquin -] 500 mg PO DAILY #7 tablet Oxycodone HCl/Acetaminophen [Percocet 5-325 mg Tablet] 1 tab PO Q6H PRN #10 tablet MDD 3 tabs PRN Reason: Severe Pain - Follow up/Referral Referrals: Kojo Whyte MD [Staff Physician] - 1 week - Patient Discharge Instructions Patient Printed Discharge Instructions: DI for Flank Pain Additional Instructions: Drink plenty of water; Levaquin 500 mg 3 times a day Alternate Aleve (take with food) with Tylenol as needed for moderate pain Percocet 5/325 up to 3 times a day as needed for severe pain Follow-up with your general doctor within the next 5 days Return to ER immediately if you have worsening pain/vomiting/fever Follow-up with if you have persistent lower back pain - Post Discharge Activity
== END 2018-12-13 22:43 | disposition home or self-care (01) ==
LOC: FER 17:43
PROC: 3E033NZ Introduction of Analgesics, Hypnotics, Sedatives into Peripheral Vein, Percutaneous Approach (ICD-10-PCS; principal; 2018-12-13)
PROC: 3E0333Z Introduction of Anti-inflammatory into Peripheral Vein, Percutaneous Approach (ICD-10-PCS; 2018-12-13)
DX: J40 Bronchitis, not specified as acute or chronic (principal); R10.31 Right lower quadrant pain; Z88.0 Allergy status to penicillin
CPT/HCPCS: 36415; 71045-TC-FY; 74176-TC; 80053; 81003; 81015; 83605; 83690; 83735; 85025; 85610; 85730; 87086; 99283-25; J0131

== ENCOUNTER 2019-04-01 23:21 | Inpatient (IN) | payer OTHER ==
[2019-04-01] MEDS ORDERED: ALBUTEROL SO4 2.5/IPRATROPIUM 0.5 INH SOL 3 ML VIAL.NEB. NEB ONE (23:32)
[2019-04-01] MEDS ORDERED: predniSONE 20 MG TABLET (UD) ONE (23:32)
--- NOTE | 2019-04-01 23:35 | PDOC ---
History of Present Illness - General Chief Complaint: Shortness of Breath Stated Complaint: SOB History Source: Patient Exam Limitations: No Limitations - History of Present Illness Initial Comments: 04/01/19 23:31 This is a 73-year-old male who comes in complaining of difficulty breathing x1 week. Patient has a history of COPD for which he takes albuterol otherwise no medications. Patient said he intermittently has exacerbation of his COPD and goes to the urgent care center and is usually steroids and antibiotics. Patient otherwise has been having some intermittent chest pain that is more pleuritic in nature. Patient is noted to be coughing with some dyspnea on exertion here in the ED. Allergies: as per nursing notes Past Medical History: Hypertension, high cholesterol and COPD Social history: Lives with family. No smoking. No alcohol. No illicit drugs. Surgical history: None General: No fevers or chills, no weakness, no weight loss HEENT: No change in vision. No sore throat,. No ear pain CardioVascular: + Pleuritic chest discomfort. + shortness of breath Respiratory:+ cough, + wheezing. Gastrointestinal: no nausea, vomiting, diarrhea or constipation, No rectal bleeding Genitourinary: No dysuria, hematuria, or frequency Musculoskeletal: No joint or muscle pain or swelling Neurologic: No headache, vertigo, dizziness or loss of consciousness Psychiatric: nor depression Skin: No rashes or easy bruising Endocrine: no increased thirst or abnormal weight change Allergic: no skin or latex allergy All other systems reviewed and normal Exam: General: Well-nourished well-developed individual, no acute distress HEENT: Throat: Normal, tonsils normal, no erythema or exudate Neck: Supple, no meningeal signs, no lymphadenopathy Eyes::Pupils equal reactive and round, extraocular motion intact Chest: Nontender to palpation Cardiac: S1-S2 normal, regular rate and rhythm, no murmurs rubs or gallops Respiratory: Moderate expiratory wheezing in all lung schroeder with some mild tachypnea Abdomen: Soft, nondistended, normal bowel sounds, there is no tenderness on palpation diffusely Extremities: Warm, dry, no cyanosis, clubbing, or edema Skin: No rashes Neuro: Alert and oriented x3, CN II - XII intact, nonfocal exam with normal strength, normal sensation, normal reflexes, normal gait, Psych: Normal mood and affect Assessment and plan: This is a 73-year-old male with difficulty breathing/COPD exacerbation and intermittent chest pain over the last week. Work-up initiated including CBC, comp, portable chest x-ray, EKG and cardiac enzymes. Patient given prednisone and DuoNeb's x2 Past History - Past Medical History Allergies/Adverse Reactions: Allergies Allergy/AdvReac Type Severity Reaction Status Date / Time Penicillins Allergy Itching Verified 12/13/18 17:45 Home Medications: Ambulatory Orders Amlodipine Besylate 10 mg PO DAILY 07/26/18 Aspirin Coated [Ecotrin -] 325 mg PO HS 07/26/18 Hydrochlorothiazide [Hctz -] 12.5 mg PO HS 07/26/18 Ramipril 10 mg PO BID 04/01/19 Anemia: No Asthma: No Cancer: No Cardiac Disorders: Yes CVA: Yes (05/2018) COPD: Yes CHF: No Dementia: No Diabetes: No GI Disorders: Yes (GERD COLONIC POLYPS HIATAL HERNIA,DIVERTICULITIS) Disorders: Yes (KIDNEY STONES) HTN: Yes Hypercholesterolemia: Yes Liver Disease: No Seizures: No Thyroid Disease: No - Surgical History Abdominal Surgery: Yes Appendectomy: Yes Cardiac Surgery: Yes (rigth carotid artery stent) Cholecystectomy: Yes Lung Surgery: No Neurologic Surgery: No Orthopedic Surgery: No - Immunization History Immunization Up to Date: No - Psycho Social/Smoking Cessation Hx Smoking History: Former smoker Have you smoked in the past 12 months: No Number of Cigarettes Smoked Daily: 1 If you are a former smoker, when did you quit?: 05/2018 Cigars Per Day: 1 Information on smoking cessation initiated: No 'Breaking Loose' booklet given: 04/14/14 Hx Alcohol Use: No (occasional) Drug/Substance Use Hx: No Substance Use Type: Alcohol Hx Substance Use Treatment: No *Physical Exam - Vital Signs Last Vital Signs Temp Pulse Resp BP Pulse Ox 97.5 F L 100 H 20 158/76 96 04/01/19 23:23 04/01/19 23:23 04/01/19 23:23 04/01/19 23:23 04/01/19 23:23 ED Treatment Course - LABORATORY CBC & Chemistry Diagram: 04/02/19 00:00 04/02/19 00:00 - RADIOLOGY Radiology Studies Ordered: Category Date Time Status CHEST X-RAY PORTABLE* [RAD] Stat Radiology 04/01/19 23:23 Ordered Discharge - Discharge Information Problems reviewed: Yes Clinical Impression/Diagnosis: COPD exacerbation, Pneumonia Condition: Stable - Admission Yes - Follow up/Referral Referrals: Riki Gibson MD [Primary Care Provider] - - Patient Discharge Instructions - Post Discharge Activity
[2019-04-01] MEDS: ALBUTEROL SO4 2.5/IPRATROPIUM 0.5 INH SOL 3 ML VIAL.NEB. NEB SCH (23:53)
[2019-04-02] MEDS: ALBUTEROL SO4 2.5/IPRATROPIUM 0.5 INH SOL 3 ML VIAL.NEB. NEB SCH ×6 (00:03→21:58)
[2019-04-02 00:50] LABS: BASO % 0.5 % (0-2.0); EOS % 4.6 % (0-4.5); HEMATOCRIT 42.9 % (35.4-49); HEMOGLOBIN 14.1 GM/dL (11.7-16.9); LYMPH % 11.9 % (8-40); MCH 29.7 pg (25.7-33.7); MCHC 32.8 g/dl (32.0-35.9); MEAN CELL VOLUME 90.5 fl (80-96); MONO % 8.6 % (3.8-10.2); NEUT % 74.4 % (42.8-82.8); PLATELET COUNT 230 K/MM3 (134-434); RBC 4.74 M/mm3 (4.00-5.60); RDW 14.9 % (11.9-15.9); WHITE BLOOD COUNT 16.6 K/mm3 (4.0-10.0)
[2019-04-02 01:09] LABS: ALBUMIN 3.6 g/dl (3.4-5.0); BILIRUBIN,TOTAL 0.5 mg/dL (0.2-1); BLOOD UREA NITROGEN 27.9 mg/dL (7-18); CALCIUM 9.2 mg/dL (8.5-10.1); CREATININE 1.6 mg/dL (0.55-1.3); POTASSIUM 4.3 mmol/L (3.5-5.1); TOT PROT 6.7 g/dl (6.4-8.2)
[2019-04-02] MEDS ORDERED: CEFTRIAXONE 1,000 MG in DEXTROSE 5%-WATER - 50 ML IVPB ONE (01:09)
[2019-04-02] MEDS ORDERED: predniSONE 20 MG TABLET (UD) PO ONE (01:11)
[2019-04-02] MEDS ORDERED: cefTRIAXone SODIUM 1 GM VIAL ONE (01:16)
[2019-04-02] MEDS ORDERED: ALBUTEROL SO4 2.5/IPRATROPIUM 0.5 INH SOL 3 ML VIAL.NEB. NEB PRN (01:45)
[2019-04-02 02:28] VITALS: BMI 38.4
[2019-04-02] MEDS: HEPARIN NA (PORCINE) 5,000 UNITS/ML 1ML VIAL SQ SCH ×2 (09:25→21:58)
[2019-04-02] MEDS ORDERED: methylPREDNISolone NA SUCC 40 MG/1 ML VIAL IVPUSH SCH (10:00)
--- NOTE | 2019-04-02 11:23 | EKG ---
Test Reason : Blood Pressure : / mmHG Vent. Rate : 095 BPM Atrial Rate : 095 BPM P-R Int : 176 ms QRS Dur : 104 ms QT Int : 374 ms P-R-T Axes : 031 -19 035 degrees QTc Int : 469 ms NORMAL SINUS RHYTHM INCOMPLETE RIGHT BUNDLE BRANCH BLOCK NO PREVIOUS ECGS AVAILABLE Confirmed by RASHAUN BROWN MD ([id number]) on 04/02/2019 11:23:05 AM Referred By: MARTY SANTILLAN Confirmed By:RASHAUN BROWN MD
--- NOTE | 2019-04-02 11:24 | HP ---
CHIEF COMPLAINT: Shortness of breath, intermittent chest pain PCP: Dr. Gibson [facility] Supervisor: Dr. Deborah Richardson [facility] HISTORY OF PRESENT ILLNESS: 73 year-old male with a PMH significant for HTN, COPD, chronic leukocytosis, GERD, diverticulosis, and kidney stones. Presented to the ED for evaluation of difficulty breathing and cough with pleuritic-type chest pain x 1 week. Previous exacerbations in December and January 2019, treated with PO steroids and antibiotics at urgent care. Had PFT testing many years ago. Uses albuterol inhaler only at home. Denies fever, sweats, chills. ED course remarkable for: (1) Cr 1.6 Recent Travel: No PAST MEDICAL HISTORY: Hypertension COPD Chronic leukocytosis GERD Diverticulosis Kidney stones PAST SURGICAL HISTORY: Appendectomy Cholecystectomy Social History: lives with Smokin years, quit May 2018 Alcohol: no Drugs: no Allergies Penicillins Allergy (Verified 12/13/18 17:45) Itching rash HOME MEDICATIONS: Home Medications Medication Instructions Recorded Amlodipine Besylate 10 mg PO DAILY 07/26/18 Aspirin Coated [Ecotrin -] 325 mg PO HS 07/26/18 Hydrochlorothiazide [Hctz -] 12.5 mg PO HS 07/26/18 Ramipril 10 mg PO BID 04/01/19 REVIEW OF SYSTEMS CONSTITUTIONAL: Absent: fever, chills, diaphoresis, generalized weakness, malaise, loss of appetite, weight change HEENT: Absent: rhinorrhea, nasal congestion, throat pain, throat swelling, difficulty swallowing, mouth swelling, ear pain, eye pain, visual changes CARDIOVASCULAR: Absent: chest pain, syncope, palpitations, irregular heart rate, lightheadedness , peripheral edema RESPIRATORY: +cough, SOB, CHILEL Absent: orthopnea, wheezing, stridor, hemoptysis GASTROINTESTINAL: Absent: abdominal pain, abdominal distension, nausea, vomiting, diarrhea, constipation, melena, hematochezia GENITOURINARY: Absent: dysuria, frequency, urgency, hesitancy, hematuria, flank pain, genital pain MUSCULOSKELETAL: Absent: myalgia, arthralgia, joint swelling, back pain, neck pain SKIN: Absent: rash, itching, pallor HEMATOLOGIC/IMMUNOLOGIC: Absent: easy bleeding, easy bruising, lymphadenopathy, frequent infections ENDOCRINE: Absent: unexplained weight gain, unexplained weight loss, heat intolerance, cold intolerance NEUROLOGIC: Absent: headache, focal weakness or paresthesias, dizziness, unsteady gait, seizure, mental status changes, bladder or bowel incontinence PSYCHIATRIC: Absent: anxiety, depression, suicidal or homicidal ideation, hallucinations. PHYSICAL EXAMINATION Vital Signs - 24 hr 04/01/19 04/02/19 04/02/19 23:23 01:23 02:07 Temperature 97.5 F L 97.7 F 97.8 F Pulse Rate 100 H 82 Pulse Rate [ 87 Right] Respiratory 20 17 Rate Blood Pressure 158/76 153/59 L Blood Pressure 158/72 [Left Arm] O2 Sat by Pulse 96 94 L 93 L Oximetry (%) 04/02/19 09:28 Temperature 97.7 F Pulse Rate 87 Pulse Rate [ Right] Respiratory 20 Rate Blood Pressure 153/71 Blood Pressure [Left Arm] O2 Sat by Pulse Oximetry (%) GENERAL: Awake, alert, and fully oriented, in no acute distress. HEAD: Normal with no signs of trauma. EYES: Pupils equal, round and reactive to light, extraocular movements intact, sclera anicteric, conjunctiva clear. LUNGS: Breath sounds equal, clear to auscultation bilaterally. No wheezes, and no crackles. No accessory muscle use. HEART: Regular rate and rhythm, normal S1 and S2 ABDOMEN: Soft, nontender, not distended, MUSCULOSKELETAL: Normal range of motion at all joints. No bony deformities or tenderness. No CVA tenderness. UPPER EXTREMITIES: 2+ pulses, warm, well-perfused. No cyanosis. No clubbing. No peripheral edema. LOWER EXTREMITIES: 2+ pulses, warm, well-perfused. No calf tenderness. No peripheral edema. NEUROLOGICAL: Cranial nerves II-XII intact. Normal speech. Normal gait. PSYCHIATRIC: Cooperative. Good eye contact. Appropriate mood and affect. SKIN: Warm, dry, normal turgor Laboratory Results - last 24 hr 04/02/19 04/02/19 04/02/19 00:00 00:00 01:15 WBC 16.6 H RBC 4.74 Hgb 14.1 Hct 42.9 MCV 90.5 MCH 29.7 MCHC 32.8 RDW 14.9 Plt Count 230 MPV 9.0 Absolute Neuts (auto) 12.4 H Neutrophils % 74.4 Lymphocytes % 11.9 Monocytes % 8.6 Eosinophils % 4.6 H Basophils % 0.5 Nucleated RBC % 0 Sodium 141 Potassium 4.3 Chloride 109 H Carbon Dioxide 23 Anion Gap 9 BUN 27.9 H Creatinine 1.6 H Est GFR (CKD-EPI)AfAm 48.47 Est GFR (CKD-EPI)NonAf 41.82 Random Glucose 135 H Lactic Acid 1.6 Calcium 9.2 Total Bilirubin 0.5 AST 19 ALT 36 Alkaline Phosphatase 93 Creatine Kinase 214 Creatine Kinase Index 1.1 CK-MB (CK-2) 2.5 Troponin I 0.02 Total Protein 6.7 Albumin 3.6 ASSESSMENT/PLAN: 73 year-old male with a PMH significant for HTN, COPD, chronic leukocytosis, GERD, diverticulosis, and kidney stones. Admitted for COPD exacerbation, elevated creatinine. Acute on chronic COPD --CT: chronic lung disease --no wheezing, stop steroids --duonebs --pre post --pulmonary consult pending Chronic leukocytosis --follows with Dr. Richardson, hematololgist at [facility] Elevated creatinine --Cr 1.6 on admission, baseline 1.2 --encourage PO intake Hypertension --BP stable --continue amlodipine, Ramipril GERD --continue protonix Diverticulosis --stable Kidney stones --no acute issues FEN Fluids: PO intake adequate Electrolytes: replete as indicated Nutrition: low sodium DVT prophylaxis: subq heparin Dispio: continues to require inpatient care. Full code. Visit type - Emergency Visit Emergency Visit: Yes ED Registration Date: 04/02/19 Care time: The patient presented to the Emergency Department on the above date and was hospitalized for further evaluation of their emergent condition. - New Patient This patient is new to me today: Yes Date on this admission: 04/03/19 - Critical Care Critical Care patient: No
[2019-04-02] MEDS: PANTOPRAZOLE 40 MG TABLET (FP) PO SCH (14:22)
[2019-04-02] MEDS: amLODIPine BESYLATE 10 MG TABLET (FP) PO SCH (15:00)
--- NOTE | 2019-04-02 17:40 | CON.PULM ---
Consult Consult Specialty:: PULMONARY Referred by:: JIHAN Reason for Consultation:: SOB - History of Present Illness Chief Complaint: SOB History of Present Illness: This is a 73-year-old male who comes in complaining of difficulty breathing x1 week. Patient has a history of COPD for which he takes albuterol otherwise no medications. Patient said he intermittently has exacerbation of his COPD and goes to the urgent care center and is usually steroids and antibiotics. Patient otherwise has been having some intermittent chest pain that is more pleuritic in nature. 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 No: AFIB Pulmonary: Yes: COPD. No: O2 Dependent, Pneumonia Gastrointestinal: No: Ascites Hepatobiliary: No: Cirrhosis Renal/: No: Renal Failure - Alcohol/Substance Use Hx Alcohol Use: No (occasional) - Smoking History Smoking history: Former smoker Have you smoked in the past 12 months: Yes Aproximately how many cigarettes per day: 1 If you are a former smoker, when did you quit?: 05/2018 Home Medications - Allergies Allergies/Adverse Reactions: Allergies Allergy/AdvReac Type Severity Reaction Status Date / Time Penicillins Allergy Itching Verified 12/13/18 17:45 - Home Medications Home Medications: Ambulatory Orders Amlodipine Besylate 10 mg PO DAILY 07/26/18 Aspirin Coated [Ecotrin -] 325 mg PO HS 07/26/18 Hydrochlorothiazide [Hctz -] 12.5 mg PO HS 07/26/18 Ramipril 10 mg PO BID 04/01/19 Family Medical History Family History: Unremarkable Review of Systems - Review of Systems Constitutional: denies: Fever Eyes: denies: Blurred Vision HENT: denies: Difficult Swallowing Neck: denies: Decreased ROM Cardiovascular: denies: Chest Pain Respiratory: reports: Cough, Exercise Intolerance, Orthopnea, SOB, SOB on Exertion. denies: Hemoptysis Physical Exam Vital Sings: Vital Signs Temperature 98.5 F 04/02/19 14:00 Pulse Rate 88 04/02/19 14:00 Respiratory Rate 18 04/02/19 14:00 Blood Pressure 151/63 04/02/19 14:00 O2 Sat by Pulse Oximetry (%) 93 L 04/02/19 02:07 Constitutional: Yes: Calm Eyes: Yes: EOM Intact HENT: Yes: Normocephalic Neck: Yes: Trachea Midline Cardiovascular: Yes: Regular Rate and Rhythm Respiratory: Yes: Diminished Gastrointestinal: Yes: Abdomen, Obese Edema: LLE: 1+, RLE: 1+ Neurological: Yes: WNL Labs: CBC, BMP 04/02/19 00:00 04/02/19 00:00 Imaging - Results Chest X-ray: Report Reviewed, Image Reviewed Cat Scan: Report Reviewed, Image Reviewed Problem List - Problems (1) COPD exacerbation Code(s): J44.1 - CHRONIC OBSTRUCTIVE PULMONARY DISEASE W (ACUTE) EXACERBATION Assessment/Plan LIKELY A/E COPD ?OSAS ?CARDIAC COMPONENT WILL HAVE OUTPATIENT WORKUP W PFT'S/PSG WOULD DISCHARGE ON BRONCHODILATORS/JOAN/LABA/LAMA/ICS BP CONTROL WEIGHT LOSS CONTACT INFO PROVIDED Montez SPRINGER MD
[2019-04-02] MEDS ORDERED: RAMIPRIL 5 MG CAPSULE (FP) PO SCH (22:00)
[2019-04-02] MEDS ORDERED: ASPIRIN 325 MG ENTERIC COATED TABLET (FP) PO SCH (22:00)
[2019-04-03 08:35] LABS: CALCIUM 9.5 mg/dl (8.5-10); CREATININE 1.4 mg/dl (0.55-1.3); POTASSIUM 4.6 mmol/L (3.5-5.1)
[2019-04-03 08:39] LABS: HEMATOCRIT 42.9 % (35.4-49); HEMOGLOBIN 14.1 GM/dl (11.7-16.9); MCHC 32.8 g/dl (32.0-35.9); MEAN CELL VOLUME 91.4 fl (80-96); PLATELET COUNT 256 K/MM3 (134-434); RBC 4.69 M/mm3 (4.00-5.60); RDW 13.8 % (11.9-15.9)
--- NOTE | 2019-04-03 09:29 | PN ---
Physical Exam: SUBJECTIVE: Patient seen and examined OBJECTIVE: Vital Signs Period Temp Pulse Resp BP Sys/Angeles Pulse Ox Last 24 Hr 97.4 F-98.5 F 63-88 18-20 121-154/55-75 93-97 GENERAL: The patient is awake, alert, and fully oriented, in no acute distress. HEAD: Normal with no signs of trauma. EYES: PERRL, extraocular movements intact, sclera anicteric, conjunctiva clear. No ptosis. ENT: Ears normal, nares patent, oropharynx clear without exudates, moist mucous membranes. NECK: Trachea midline, full range of motion, supple. LUNGS: Breath sounds equal, clear to auscultation bilaterally, no wheezes, no crackles, no accessory muscle use. HEART: Regular rate and rhythm, S1, S2 without murmur, rub or gallop. ABDOMEN: Soft, nontender, nondistended, normoactive bowel sounds, no guarding, no rebound, no hepatosplenomegaly, no masses. EXTREMITIES: 2+ pulses, warm, well-perfused, no edema. NEUROLOGICAL: Cranial nerves II through XII grossly intact. Normal speech, gait not observed. PSYCH: Normal mood, normal affect. SKIN: Warm, dry, normal turgor, no rashes or lesions noted Laboratory Results - last 24 hr 04/02/19 04/03/19 04/03/19 14:24 07:40 07:40 WBC 21.0 H RBC 4.69 Hgb 14.1 Hct 42.9 MCV 91.4 MCH 30.0 MCHC 32.8 RDW 13.8 Plt Count 256 MPV 9.0 Absolute Neuts (auto) 17.5 Neutrophils % No Result Required. Lymphocytes % No Result Required. Sodium 139 Potassium 4.6 Chloride 106 Carbon Dioxide 24 Anion Gap 9 BUN 36.0 H Creatinine 1.4 H Est GFR (CKD-EPI)AfAm 56.96 Est GFR (CKD-EPI)NonAf 49.14 Random Glucose 124 H Calcium 9.5 Troponin I < 0.03 Active Medications Generic Name Dose Route Start Last Admin Trade Name Freq PRN Reason Stop Dose Admin Albuterol/Ipratropium 1 amp 04/02/19 14:30 04/02/19 21:58 Duoneb - NEB 1 amp QID CELESTINE Administration Amlodipine Besylate 10 mg 04/02/19 14:30 04/02/19 15:00 Norvasc - PO 10 mg DAILY CELESTINE Administration Aspirin 325 mg 04/02/19 22:00 04/02/19 21:58 Ecotrin - PO 325 mg HS CELESTINE Administration Heparin Sodium (Porcine) 5,000 unit 04/02/19 10:00 04/02/19 21:58 Heparin - SQ 5,000 unit BID CELESTINE Administration Levofloxacin 500 mg in 100 mls @ 100 mls/hr 04/02/19 10:00 04/02/19 09:25 Levaquin 500 Mg Premixed Ivpb - IVPB 100 mls/hr DAILY CELESTINE Administration Protocol Pantoprazole Sodium 40 mg 04/02/19 14:00 04/02/19 14:22 Protonix - PO 40 mg DAILY CELESTINE Administration Ramipril 10 mg 04/02/19 22:00 04/02/19 21:58 Altace - PO 10 mg BID CELESTINE Administration ASSESSMENT/PLAN: Visit type - Emergency Visit Emergency Visit: Yes ED Registration Date: 04/02/19 Care time: The patient presented to the Emergency Department on the above date and was hospitalized for further evaluation of their emergent condition. - New Patient This patient is new to me today: Yes Date on this admission: 04/03/19 - Critical Care Critical Care patient: No
[2019-04-03] MEDS: ALBUTEROL SO4 2.5/IPRATROPIUM 0.5 INH SOL 3 ML VIAL.NEB. NEB SCH (09:50)
[2019-04-03 09:55] LABS: PLATELET ESTIMATE ADEQUATE
[2019-04-03] MEDS ORDERED: TIOTROPIUM BROMIDE 2.5 MCG (SPIRIVA) RESPIMAT INHALER IH SCH (10:00)
[2019-04-03] MEDS ORDERED: BUDESONIDE/FORMETEROL FUMARATE 160/4.5 mcg INHALER IH SCH (10:00)
[2019-04-03] MEDS: amLODIPine BESYLATE 10 MG TABLET (FP) PO SCH (10:10)
[2019-04-03] MEDS: HEPARIN NA (PORCINE) 5,000 UNITS/ML 1ML VIAL SQ SCH (10:10)
[2019-04-03] MEDS: PANTOPRAZOLE 40 MG TABLET (FP) PO SCH (10:11)
--- NOTE | 2019-04-03 10:42 | DS ---
Physical Exam: SUBJECTIVE: Patient seen and examined at bedside, Pt reports feeling better, states intermittent productive cough with clear sputum. Denies cp, sob, palpitations, abdominal pain, N/V/D or urinary symptoms. OBJECTIVE: Vital Signs Period Temp Pulse Resp BP Sys/Angeles Pulse Ox Last 24 Hr 97.4 F-98.5 F 63-88 18-20 121-154/55-75 93-97 PHYSICAL EXAM GENERAL: The patient is awake, alert, and fully oriented, in no acute distress. HEAD: Normal with no signs of trauma. EYES: PERRL, extraocular movements intact, sclera anicteric, conjunctiva clear. ENT: Ears normal, nares patent, oropharynx clear without exudates, moist mucous membranes. NECK: Trachea midline, full range of motion, supple. LUNGS: Breath sounds equal, clear to auscultation bilaterally, no wheezes, no crackles, no accessory muscle use. HEART: Regular rate and rhythm, S1, S2 without murmur, rub or gallop. ABDOMEN: Soft, nontender, nondistended, normoactive bowel sounds, no guarding, no rebound, no hepatosplenomegaly, no masses. EXTREMITIES: 2+ pulses, warm, well-perfused, no edema. NEUROLOGICAL: Cranial nerves II through XII grossly intact. Normal speech, gait not observed. PSYCH: Normal mood, normal affect. SKIN: Warm, dry, normal turgor, no rashes or lesions noted. LABS Laboratory Results - last 24 hr 04/02/19 04/03/19 04/03/19 14:24 07:40 07:40 WBC 21.0 H RBC 4.69 Hgb 14.1 Hct 42.9 MCV 91.4 MCH 30.0 MCHC 32.8 RDW 13.8 Plt Count 256 MPV 9.0 Absolute Neuts (auto) 17.5 Neutrophils % No Result Required. Neutrophils % (Manual) 88.0 H Lymphocytes % No Result Required. Lymphocytes % (Manual) 8.0 Monocytes % (Manual) 4 Platelet Estimate Adequate Sodium 139 Potassium 4.6 Chloride 106 Carbon Dioxide 24 Anion Gap 9 BUN 36.0 H Creatinine 1.4 H Est GFR (CKD-EPI)AfAm 56.96 Est GFR (CKD-EPI)NonAf 49.14 Random Glucose 124 H Calcium 9.5 Troponin I < 0.03 Microbiology 04/02/19 07:40 Sputum - Expectorated Gram Stain - Final 04/02/19 07:40 Sputum - Expectorated Sputum Culture - Preliminary NORMAL RESPIRATORY ANTOINETTE 04/02/19 01:15 Blood - Peripheral Venous Blood Culture - Preliminary NO GROWTH OBTAINED AFTER 24 HOURS, INCUBATION TO CONTINUE FOR 4 DAYS. 04/02/19 01:15 Blood - Peripheral Venous Blood Culture - Preliminary NO GROWTH OBTAINED AFTER 24 HOURS, INCUBATION TO CONTINUE FOR 4 DAYS. 04/02/19 07:40 Urine For Antigen Detection Legionella Antigen - Final- Negative 04/02/19 07:40 Urine For Antigen Detection Streptococcus pneumoniae Antigen (M - Final- Negative HOSPITAL COURSE: Date of Admission:04/02/19 Date of Discharge: 04/03/19 This is a 73 year-old male with a PMH significant for HTN, COPD, chronic leukocytosis, GERD, diverticulosis, and kidney stones. Presented to the ED for evaluation of difficulty breathing and cough with pleuritic-type chest pain x 1 week. Previous exacerbations in December and January 2019, treated with PO steroids and antibiotics at urgent care. Had PFT testing many years ago. Uses albuterol inhaler only at home. Denies fever, sweats, chills. Admitted for COPD exacerbation, elevated creatinine. *Acute on chronic COPD - s/p Solumedrol and Neb tx with improvement,no wheezing, stopped steroids -CT: chronic lung disease - Seen by pul dr. Bangura, rec out pt PFT's and BRONCHODILATORS/JOAN/LABA/ LAMA/ICS - added Symbicort and Spiriva - O2 sat stable on RA - will cont on Levaquin to complete the course *Chronic leukocytosis -follows with Dr. Richardson, hematololgist at [place],asymptomatic *Elevated creatinine likley due to diuretic vs QUINCY use -Cr 1.6 on admission,now trending down 1.4 (baseline 1.2) - will hold off QUINCY and HCTZ for now and to monitor renal functions closely *Hypertension-BP stable - will continue amlodipine, to hold off on Ramipril and HCTZ until renal functions stable. *GERD- stable *Diverticulosis-stable *Kidney stones-no acute issues * Obesity: Weight loss advised Minutes to complete discharge: 35 Discharge Summary Problems reviewed: Yes Reason For Visit: PNEUMONIA, ACUTE EXACERBATION OF COPD Current Active Problems COPD exacerbation (Acute) Pneumonia (Acute) Condition: Good - Instructions Diet, Activity, Other Instructions: Low salt diet Followup on CBC and Renal function tests. Weight loss advised Hold off on Ramipril and Hydrochlorothiazide until renal functions normalized. Referrals: Bryn Bangura MD [Staff Physician] - 2 Weeks Riki Gibson MD [Primary Care Provider] - 1 Week Disposition: HOME - Home Medications Comprehensive Discharge Medication List: Ambulatory Orders Amlodipine Besylate 10 mg PO DAILY 07/26/18 Aspirin Coated [Ecotrin -] 325 mg PO HS 07/26/18 Budesonide/Formeterol Fumarate [SYMBICORT 160/4.5mcg -] 2 puff IH BID inhaler 04/03/19 Tiotropium [place] [Spiriva Respimat] 2 puff IH DAILY inhaler 04/03/19 This patient is new to me today: Yes Date on this admission: 04/03/19 Emergency Visit: Yes ED Registration Date: 04/02/19 Care time: The patient presented to the Emergency Department on the above date and was hospitalized for further evaluation of their emergent condition. Critical Care patient: No - Discharge Referral Referred to [facility] No
[2019-04-03 13:27] VITALS: BP 130/60; PULSE 77; TEMP 97.9
== END 2019-04-03 13:20 | disposition home or self-care (01) | DRG 192 ==
LOC: FER 23:21 → FM/S 04-02 01:18 → UNDOADMIN 04-02 01:48 → FM/S 04-02 01:48
PROVIDERS: ADMIT Internal Medicine; ATTEND Nurse Practitioner Family
DX: J44.1 Chronic obstructive pulmonary disease with (acute) exacerbation (principal); K21.9 Gastro-esophageal reflux disease without esophagitis; K57.90 Diverticulosis of intestine, part unspecified, without perforation or abscess without bleeding; D72.829 Elevated white blood cell count, unspecified; N20.0 Calculus of kidney; I10 Essential (primary) hypertension; G47.33 Obstructive sleep apnea (adult) (pediatric); E66.9 Obesity, unspecified; Z68.38 Body mass index [BMI] 38.0-38.9, adult
CPT/HCPCS: 36415; 71046-TC-FY; 71250-TC; 80048; 80053; 81003; 81015; 82550; 82553; 83605; 84484; 85025; 87040; 87070; 87205; 87899; 93005; 94640; 99283-25; J1644